=== PATIENT | female | born 1985 | race Caucasian/White ===

== ENCOUNTER 2016-03-20 10:32 | Observation (INO) | payer OTHER ==
[~2016-03-20] VITALS: Ht 175.3 cm; Wt 71.2 kg
[~2016-03-20 10:32] MED LIST: PREN1TAB80 PO
[2016-03-20 11:15] VITALS: BP 101/64
== END 2016-03-20 11:35 | disposition home or self-care (01) ==
LOC: 4S 10:32
PROVIDERS: ADMIT Obstetrics & Gynecology; ATTEND Obstetrics & Gynecology
DX: O41.03X0 Oligohydramnios, third trimester, not applicable or unspecified (principal); O32.1XX0 Maternal care for breech presentation, not applicable or unspecified; Z3A.38 38 weeks gestation of pregnancy
CPT/HCPCS: 59025; G0378

== ENCOUNTER 2016-03-20 17:20 | Inpatient (IN) | payer OTHER ==
[~2016-03-20] VITALS: Ht 175.3 cm; Wt 71.2 kg
[~2016-03-20 17:20] MED LIST changes: +DEXAMETHASONE SOD PHOS 4 MG/ML VIAL IVP ONE; +EPHEDrine SULFATE 50 MG/ML VIAL IM ONE; +KETOROLAC TROMETHAMINE 60 MG/2 ML VIAL IM ONE; +ONDANSETRON HCL 4 MG/2 ML VIAL IVP ONE; +OXYTOCIN 10 UNITS/ML VIAL IM ONE; +RINGERS SOLUTION,LACTATED 1,000 ML IV ONE
[2016-03-20] MEDS ORDERED: CITRIC ACID/SODIUM CITRATE 30 ML SOLUTION UDCUP PO ONE (17:30)
[2016-03-20] MEDS ORDERED: METOCLOPRAMIDE HCL 5 MG/ML 2 ML VIAL IVP ONE (17:30)
[2016-03-20 18:07] VITALS: BP 115/71
[2016-03-20] MEDS ORDERED: MORPHINE SULFATE/PF 0.5 MG/ML 10 ML AMP ONE (18:10)
[2016-03-20] MEDS ORDERED: FentaNYL CITRATE-PF 100 MCG/2 ML VIAL ONE (18:11)
[2016-03-20] MEDS ORDERED: MIDAZOLAM HCL 2 MG/2 ML VIAL ONE (18:12)
[2016-03-20 18:30] LABS: BASOPHILS % (AUTO) 0.2 % (0.0-2.0); EOSINOPHILS % (AUTO) 0.4 % (1.0-6.0); HEMATOCRIT 33.5 % (36-46); HEMOGLOBIN 11.3 g/dL (12.0-16.0); LYMPHOCYTES # (AUTO) 1.9 K/uL (1.0-4.8); LYMPHOCYTES % (AUTO) 19.3 % (22.0-44.0); MEAN CORPUSCULAR HEMOGLOBIN 30.8 pg (26.0-34.0); MEAN CORPUSCULAR HGB CONC 33.6 G/dL (31.0-37.0); MEAN CORPUSCULAR VOLUME 92 fL (80-100); MONOCYTES # (AUTO) 0.6 K/uL (0.1-1.0); MONOCYTES % (AUTO) 6.5 % (2.0-9.0); NEUTROPHILS # (AUTO) 7.2 K/uL (1.8-7.7); NEUTROPHILS % (AUTO) 73.6 % (40.0-70.0); PLATELET COUNT (AUTO) 222 K/uL (150-450); RED BLOOD CELL COUNT(AUTO) 3.65 MIL/uL (4.00-5.20); RED CELL DISTRIBUTION WIDTH 13.1 % (11.5-14.5); WHITE BLOOD COUNT (AUTO) 9.8 K/uL (4.5-11.0)
[2016-03-20] MEDS ORDERED: GUM MASTIC/STORAX/MSAL/ALCOHOL LIQUID 0.67 ML VIAL TP ONE (20:14)
[2016-03-20] MEDS ORDERED: ONDANSETRON HCL 4 MG/2 ML VIAL IVP PRN ×2 (20:45→21:00)
[2016-03-20] MEDS ORDERED: DiphenhydrAMINE HCL 50 MG/ML VIAL IVP PRN ×2 (20:45→21:00)
[2016-03-20] MEDS ORDERED: MORPHINE SULFATE 2 MG/ML SYRINGE IVP PRN (20:45)
[2016-03-20] MEDS ORDERED: OXYGEN THERAPY IH SCH ×2 (20:45→21:00)
[2016-03-20] MEDS ORDERED: FentaNYL CITRATE-PF 100 MCG/2 ML VIAL IVP PRN ×2 (20:45→21:00)
[2016-03-20] MEDS ORDERED: MORPHINE SULFATE 4 MG/ML SYRINGE IVP PRN (21:00)
[2016-03-20] MEDS ORDERED: GLYCERIN/WITCH HAZEL LEAF 40 PADS JAR TP PRN (21:30)
[2016-03-20] MEDS ORDERED: LANOLIN 7 GM OINTMENT TP PRN (21:30)
[2016-03-20] MEDS ORDERED: IBUPROFEN 600 MG TABLET PO PRN (21:30)
[2016-03-20] MEDS ORDERED: OxyCODONE HCL/ACETAMINOPHEN 5-325 MG TABLET PO PRN ×2 (21:30)
[2016-03-20] MEDS: RINGERS SOLUTION,LACTATED 1,000 ML IV SCH (21:56)
[2016-03-20] MEDS ORDERED: RINGERS SOLUTION,LACTATED 1,000 ML IV ONE (21:56)
[2016-03-21] MEDS ORDERED: NALBUPHINE HCL 10 MG/ML VIAL IVP SCH
[2016-03-21] MEDS: NALBUPHINE HCL 10 MG/ML VIAL IVP SCH ×3 (00:04→12:14)
[2016-03-21] MEDS: KETOROLAC TROMETHAMINE 30 MG/ML VIAL IVP SCH ×3 (03:02→15:25)
[2016-03-21] MEDS: RINGERS SOLUTION,LACTATED 1,000 ML IV SCH ×2 (04:37→12:14)
[2016-03-21 06:48] LABS: BASOPHILS # (AUTO) 0.01 K/uL (0.00-0.20); BASOPHILS % (AUTO) 0.1 % (0.0-2.0); EOSINOPHILS % (AUTO) 0 % (1.0-6.0); HEMATOCRIT 27.7 % (36-46); HEMOGLOBIN 9.6 g/dL (12.0-16.0); LYMPHOCYTES # (AUTO) 1.4 K/uL (1.0-4.8); LYMPHOCYTES % (AUTO) 9.2 % (22.0-44.0); MEAN CORPUSCULAR HEMOGLOBIN 31.5 pg (26.0-34.0); MEAN CORPUSCULAR HGB CONC 34.7 G/dL (31.0-37.0); MEAN CORPUSCULAR VOLUME 91 fL (80-100); MONOCYTES # (AUTO) 0.6 K/uL (0.1-1.0); MONOCYTES % (AUTO) 3.8 % (2.0-9.0); NEUTROPHILS # (AUTO) 13.3 K/uL (1.8-7.7); RED BLOOD CELL COUNT(AUTO) 3.05 MIL/uL (4.00-5.20); RED CELL DISTRIBUTION WIDTH 13.5 % (11.5-14.5); WHITE BLOOD COUNT (AUTO) 15.3 K/uL (4.5-11.0)
[2016-03-21 06:51] LABS: NEUTROPHILS % (AUTO) 86.9 % (40.0-70.0)
[2016-03-21] MEDS: MAGNESIUM HYDROXIDE SUSPENSION 30 ML UDCUP PO SCH ×2 (08:49→20:42)
[2016-03-21] MEDS: SENNA/DOCUSATE SODIUM 187-50 MG TABLET PO SCH ×2 (08:49→20:43)
[2016-03-21] MEDS: IBUPROFEN 800 MG TABLET PO SCH ×2 (18:00→20:43)
[2016-03-22] MEDS: IBUPROFEN 800 MG TABLET PO SCH ×4 (02:20→22:16)
[2016-03-22] MEDS: MAGNESIUM HYDROXIDE SUSPENSION 30 ML UDCUP PO SCH ×2 (08:29→21:00)
[2016-03-22] MEDS: SENNA/DOCUSATE SODIUM 187-50 MG TABLET PO SCH ×2 (09:40→21:00)
[2016-03-23] MEDS: IBUPROFEN 800 MG TABLET PO SCH ×2 (03:51→09:56)
[2016-03-23] MEDS: SENNA/DOCUSATE SODIUM 187-50 MG TABLET PO SCH (09:00)
[2016-03-23] MEDS: MAGNESIUM HYDROXIDE SUSPENSION 30 ML UDCUP PO SCH (09:00)
[2016-03-23] MEDS ORDERED: HYDR-309 PO (12:19)
[2016-03-23] MEDS ORDERED: IBUP-2070 PO (12:20)
[2016-03-23] MEDS ORDERED: FERR-89 PO (12:21)
[2016-03-23] MEDS ORDERED: DSS100 PO (12:23)
== END 2016-03-23 14:45 | disposition home or self-care (01) | DRG 766 ==
LOC: OBSVTOIN 17:20 → 4S 17:20
PROVIDERS: ADMIT Obstetrics & Gynecology; ATTEND Obstetrics & Gynecology
PROC: 10D00Z1 Extraction of Products of Conception, Low, Open Approach (ICD-10-PCS; principal; 2016-03-20)
PROC: 10907ZC Drainage of Amniotic Fluid, Therapeutic from Products of Conception, Via Natural or Artificial Opening (ICD-10-PCS; 2016-03-20)
PROC: 4A1HXCZ Monitoring of Products of Conception, Cardiac Rate, External Approach (ICD-10-PCS; 2016-03-20)
DX: O32.1XX0 Maternal care for breech presentation, not applicable or unspecified (principal); Z37.0 Single live birth; Z3A.38 38 weeks gestation of pregnancy
CPT/HCPCS: 86850; 86900; 86901; 87081; J0690; J1100; J1885; J2250; J2274; J2300; J2405; J2590; J2765; J3010; J3490; J7120